=== PATIENT | male | born 1985 | race American Indian/Alaskan Native ===

== ENCOUNTER 2018-03-09 02:40 | Emergency (ER) | payer SELFPAY ==
[2018-03-09 03:04] VITALS: BP 125/70; PULSE 97; RESP 16; TEMP 97.6; O2SAT 97
--- NOTE | 2018-03-09 03:13 | C.PDOC ---
History Of Present Illness 32 y/o male c/o pain and swelling to right hand after punching a car window just prior to arrival. no numbness or tingling. Time Seen by Provider: 03/09/18 02:59 Chief Complaint (Nursing): Upper Extremity Problem/Injury History Per: Patient History/Exam Limitations: no limitations Onset/Duration Of Symptoms: Mins Current Symptoms Are (Timing): Still Present Quality: Tightness, "Pain" Severity: Moderate Exacerbating Factor(s): Strenuous Use Of Affected Area, Movement Past Medical History Reviewed: Historical Data, Nursing Documentation, Vital Signs Vital Signs: Last Vital Signs Temp 97.6 F 03/09/18 02:49 Pulse 97 H 03/09/18 02:49 Resp 16 03/09/18 02:49 BP 125/70 03/09/18 02:49 Pulse Ox 97 03/09/18 05:22 - Medical History PMH: No Chronic Diseases Family History: States: Unknown Family Hx - Social History Hx Alcohol Use: Yes Hx Substance Use: No Review Of Systems Constitutional: Negative for: Fever, Chills Cardiovascular: Negative for: Chest Pain Respiratory: Negative for: Cough Gastrointestinal: Negative for: Abdominal Pain Musculoskeletal: Positive for: Hand Pain Skin: Positive for: Bruising (dorsum right hand) Neurological: Negative for: Weakness, Numbness Physical Exam - Physical Exam Appears: Non-toxic, No Acute Distress Skin: Warm, Dry Head: Atraumatic, Normacephalic Extremity: Other (dorsum right hand swollenand tender over 3rd mcp joint and metacarpal, dec rom at wrist, +2 radial pulse, skin intact. ) ED Course And Treatment O2 Sat by Pulse Oximetry: 97 Medical Decision Making Medical Decision Makin32 y/o male s/p punched window, bony pain, skin intact. Plan: xray, analgesic and cold compress 0514 notifed by RN that pt walked out, needs to go to work, unable to wait for xray of his hand. Disposition - Disposition Disposition: ELOPEMENT - ER ONLY Disposition Time: 05:15 Condition: GOOD Forms: [facility] (Pashto) - Clinical Impression Clinical Impression: Injury of right hand
== END 2018-03-09 03:15 | disposition left against medical advice (07) ==
LOC: C.ER 02:40
DX: S69.91XA Unspecified injury of right wrist, hand and finger(s), initial encounter (principal); W22.8XXA Striking against or struck by other objects, initial encounter

== ENCOUNTER 2018-03-09 11:11 | Emergency (ER) | payer OTHER ==
[2018-03-09 11:16] VITALS: BMI 28.0
[2018-03-09 11:19] VITALS: RESP 18; TEMP 98.7
--- NOTE | 2018-03-09 12:02 | C.PDOC ---
History Of Present Illness Patient is a 32 y/o male presenting to the ER complaining of swelling to the right hand status post punching the car window this morning because he was upset at girlfriend. Patient denies any weakness, tingling or numbness. Time Seen by Provider: 03/09/18 11:21 Chief Complaint (Nursing): Finger,Hand,&Wrist History Per: Patient History/Exam Limitations: no limitations Onset/Duration Of Symptoms: Hrs Current Symptoms Are (Timing): Still Present Past Medical History Reviewed: Historical Data, Nursing Documentation, Vital Signs Vital Signs: Last Vital Signs Temp 98.7 F 03/09/18 11:16 Pulse 74 03/09/18 12:24 Resp 18 03/09/18 12:24 BP 119/73 03/09/18 12:24 Pulse Ox 96 03/09/18 20:56 - Medical History PMH: No Chronic Diseases Surgical History: No Surg Hx Family History: States: No Known Family Hx - Social History Hx Alcohol Use: Yes Hx Substance Use: No - Immunization History Hx Tetanus Toxoid Vaccination: No Hx Influenza Vaccination: No Hx Pneumococcal Vaccination: No Review Of Systems Except As Marked, All Systems Reviewed And Found Negative. Musculoskeletal: Positive for: Hand Pain (Right) Neurological: Negative for: Weakness, Numbness Physical Exam - Physical Exam Appears: Non-toxic, No Acute Distress Skin: Normal Color, Warm, Dry Head: Atraumatic, Normacephalic Eye(s): bilateral: Normal Inspection Oral Mucosa: Moist Neck: Supple Chest: Symmetrical Cardiovascular: Rhythm Regular Respiratory: Normal Breath Sounds, No Rales, No Rhonchi, Wheezing Extremity: Tenderness (Tenderness to third metacarpal bone of right mid dorsal wrist. ), Swelling (Right hand ) Pulses: Left Radial: Normal, Right Radial: Normal Neurological/Psych: Oriented x3 Gait: Steady ED Course And Treatment O2 Sat by Pulse Oximetry: 96 (RA) Pulse Ox Interpretation: Normal - Other Rad right hand xray X-Ray: Viewed By Me, Read By Radiologist Interpretation: Accession No. : [id number]. Patient Name / ID : DIEUDONNE SALMERON / [id number]. Exam Date : 03/09/2018 11:37:19 ( Approved ). Study Comment : Sex / Age : M / 32Y. Creator : Rito Campos MD. Dictator : Rito Campos MD. Electric Deicer Assembler : Forging Operator : Rito Campos MD. Approver2 : Report Date : 03/09/2018 15:23:23. My Comment : . PROCEDURE: Right Hand Radiographs. HISTORY: injury. COMPARISON: None. FINDINGS: BONES: No acute fracture. Circumscribed rounded lucent lesion in mid scaphoid with thin sclerotic border. Ganglion cyst versus unicameral bone cyst. JOINTS : Normal. No osteoarthritic changes. SOFT TISSUES: Normal. OTHER FINDINGS: None. IMPRESSION: No acute fracture. Lucent lesion mid scaphoid. See above. Right wrist xray X-Ray: Viewed By Me, Read By Radiologist Interpretation: Accession No. : [id number]. Patient Name / ID : DIEUDONNE SALMERON / [id number]. Exam Date : 03/09/2018 11:37:31 ( Approved ). Study Comment : Sex / Age : M / 32Y. Creator : Rito Campos MD. Dictator : Rito Campos MD. Electric Deicer Assembler : Forging Operator : Rito Campos MD. Approver2 : Report Date : 03/09/2018 15:10:59. My Comment : . PROCEDURE: Right Wrist Radiographs. . HISTORY: injury. COMPARISON: None. FINDINGS: BONES: No acute fracture. Rounded circumscribed lucent lesion in the scaphoid with thin sclerotic border. No osseous expansion. Unclear significance. Solitary bone cyst versus ganglion cyst. JOINTS: Normal. No dislocation. SOFT TISSUES: Normal. OTHER FINDINGS: None. IMPRESSION: No acute fracture. Lucent lesion of the scaphoid. Likely solitary bone cyst versus ganglion cysts. Progress Note: Orders: Tylenol 650mg PO. XR right hand. XR right wrist Medical Decision Making Medical Decision Making: Cock up splint was applied. Disposition - Disposition Referrals: Lew Guerrero III, MD [Staff Provider] - Clair Lamar MD [Staff Provider] - Disposition: HOME/ ROUTINE Disposition Time: 12:02 Condition: GOOD Additional Instructions: Follow up with hand specialist/orthopedist within 1-2 days. Return to ED if feel worse Prescriptions: Ibuprofen [Motrin Tab] 600 mg PO Q8 #30 tab Instructions: Contusion (DC), Hand Pain (DC) Forms: [facility] (Armenian) - Clinical Impression Clinical Impression: Contusion of right hand - PA / HYDROLOGIC MODELER / Resident Statement MD/DO has reviewed & agrees with the documentation as recorded. - Scribe Statement The provider has reviewed the documentation as recorded by the Jennyibjoyce Gudino All medical record entries made by the Jennyibjoyce were at my direction and personally dictated by me. I have reviewed the chart and agree that the record accurately reflects my personal performance of the history, physical exam, medical decision making, and the department course for this patient. I have also personally directed, reviewed, and agree with the discharge instructions and disposition.
[2018-03-09 12:24] VITALS: BP 119/73; PULSE 74
--- NOTE | 2018-03-09 15:12 | RAD ---
PROCEDURE: Right Wrist Radiographs. HISTORY: injury COMPARISON: None. FINDINGS: BONES: No acute fracture. Rounded circumscribed lucent lesion in the scaphoid with thin sclerotic border. No osseous expansion. Unclear significance. Solitary bone cyst versus ganglion cyst. JOINTS: Normal. No dislocation. SOFT TISSUES: Normal. OTHER FINDINGS: None. IMPRESSION: No acute fracture. Lucent lesion of the scaphoid. Likely solitary bone cyst versus ganglion cysts.
--- NOTE | 2018-03-09 15:25 | RAD ---
PROCEDURE: Right Hand Radiographs. HISTORY: injury COMPARISON: None. FINDINGS: BONES: No acute fracture. Circumscribed rounded lucent lesion in mid scaphoid with thin sclerotic border. Ganglion cyst versus unicameral bone cyst. JOINTS: Normal. No osteoarthritic changes. SOFT TISSUES: Normal. OTHER FINDINGS: None. IMPRESSION: No acute fracture. Lucent lesion mid scaphoid. See above.
[2018-03-09 20:56] VITALS: O2SAT 96
== END 2018-03-09 12:40 | disposition home or self-care (01) ==
LOC: C.ER 11:11
DX: S60.221A Contusion of right hand, initial encounter (principal); W22.8XXA Striking against or struck by other objects, initial encounter